=== PATIENT | male | born 1980 | race Caucasian/White ===

== ENCOUNTER 2020-08-03 11:26 | Emergency (ER) | payer OTHER ==
[2020-08-03] MEDS ORDERED: Zofran 4 MG/2 ML VIAL IV ONE (11:43)
[2020-08-03] MEDS ORDERED: BABY ASPIRIN 81 MG CHEW PO ONE (11:43)
[2020-08-03 11:50] LABS: Absolute Neutrophil Ct (ANC) 5.78 (1.4-6.9); BASOPHIL % 0.1 % (0.0-0.4); Basophil (Absolute #) 0.01 (0-0.4); Eosinophil (Absolute #) 0.08 (0-0.5); Hematocrit 50.2 % (42-50); Lymphocyte (Absolute #) 1.42 (1.0-4.6); Lymphocytes % 18.3 % (24.0-44.0); Mean Cell Volume 93.5 fl (78-100); Mean Corpuscular Hemoglobin 31.7 pg (26-32); Mean Corpuscular Hgb Concent. 33.9 g/dl (32-36); Mean Platelet Volume 11.4 fl (7.5-11.0); Monocyte (Absolute #) 0.47 (0.0-1.3); Monocytes % 6.1 % (0.0-12.0); Neutrophil % 74.5 % (36.0-66.0); Platelet Count 241 K/mm3 (150-450); Red Blood Count 5.37 M/mm3 (4.1-5.6); Red Cell Distribution Width 13.1 % (11.5-14.0); White Blood Count 7.8 K/mm3 (4.0-10.5)
[2020-08-03] MEDS ORDERED: Zofran 4 MG/2 ML VIAL ONE (11:59)
[2020-08-03] MEDS ORDERED: BABY ASPIRIN 81 MG CHEW ONE (12:00)
--- NOTE | 2020-08-03 12:14 | ERPHSYRPT ---
- History of Present Illness Historian: patient Exam Limitations: no limitations Patient Subjective Stated Complaint: pt reports chest pain beginning last evening around 2200, states the pain radiates to his back and left shoulder. pt reports strong family cardiac history. pt also reports intermittent nausea. Triage Nursing Assessment: pt is aox3, pt appears in no acute distress, afebrile, pupils perrl, radial pulses strong and equal, cap refill < 3 seconds, pt skin pink warm dry. no edema appreciated. Physician History: 40 yo wm w substernal chest pain x 4 hours. Pt states pain 0 on scale but was up to a 2. He had nausea/diaphoresis wo vomiting/dyspnea. Pt denies HTN/DM/Hyperlipidemia/FH CAD but does smoke <1ppd. Cough/fever are also denied. He has never had this pain before. Timing/Duration: today (4 hours) Activities at Onset: rest Quality: aching, dullness Location: substernal Severity of Pain-Max: mild Severity of Pain-Current: none Modifying Factors: Improves With: nothing Associated Symptoms: diaphoresis, No nausea, No vomiting, No palpitations, No heartburn, No abdominal pain, No shortness of breath, No cough, No hurts to breathe, No chills, No fever, No fatigue, No weakness, No swelling/lump in chest, No syncope, No rash, No headache, No dizziness, No edema, No back pain Prior Chest Pain/Cardiac Workup: no prior chest pain Nitro Today/Relief: no nitro taken today Aspirin Treatment Today: no aspirin today Allergies/Adverse Reactions: sulfamethoxazole [From Bactrim] Allergy (Verified 08/03/20 11:45) Hives trimethoprim [From Bactrim] Allergy (Verified 08/03/20 11:45) Hives Home Medications: Triamterene/Hydrochlorothiazid [Triamterene-Hctz 37.5-25 mg Tb] 1 each PO QAM 08/03/20 [History] Hx Tetanus, Diphtheria Vaccination/Date Given: Yes Hx Influenza Vaccination/Date Given: No Hx Pneumococcal Vaccination/Date Given: No Immunizations Up to Date: Yes Travel Risk - International Travel Have you traveled outside of the country in past 3 weeks: No - Coronavirus Screening Are you exhibiting any of the following symptoms?: No Close contact with a COVID-19 positive Pt in past 14-21 Days: No - Review of Systems Constitutional: No Symptoms Eyes: No Symptoms Ears, Nose, & Throat: No Symptoms Respiratory: No Symptoms Cardiac: Chest Pain, No Edema, No Palpitations, No Syncope, No Orthopnea, No PND Abdominal/Gastrointestinal: No Symptoms Genitourinary Symptoms: No Symptoms Musculoskeletal: No Symptoms Skin: No Symptoms Neurological: No Symptoms Psychological: No Symptoms Endocrine: No Symptoms Hematologic/Lymphatic: No Symptoms Immunological/Allergic: No Symptoms - Past Medical History Pertinent Past Medical History: Yes Neurological History: No Pertinent History ENT History: No Pertinent History Cardiac History: No Pertinent History Respiratory History: No Pertinent History Endocrine Medical History: No Pertinent History Musculoskeletal History: No Pertinent History GI Medical History: No Pertinent History History: No Pertinent History Psycho-Social History: Anxiety Male Reproductive Disorders: No Pertinent History Other Medical History: Meniere's Disease - Past Surgical History Past Surgical History: No Neuro Surgical History: No Pertinent History Cardiac: No Pertinent History Respiratory: No Pertinent History Gastrointestinal: No Pertinent History Musculoskeletal: No Pertinent History Male Surgical History: No Pertinent History - Social History Smoking Status: Current every day smoker Exposure to second hand smoke: No Alcohol Use: Socially Drug Use: marijuana Patient Lives Alone: No Significant Family History: no pertinent family hx - Nursing Vital Signs Nursing Vital Signs: Initial Vital Signs Temperature 97.0 F 08/03/20 11:27 Pulse Rate 80 08/03/20 11:27 Respiratory Rate 14 08/03/20 11:27 Blood Pressure 119/81 08/03/20 11:27 O2 Sat by Pulse Oximetry 99 08/03/20 11:27 Pain Scale Pain Intensity 0 - Physical Exam General Appearance: no apparent distress Eye Exam: PERRL/EOMI, eyes nml inspection Ears, Nose, Throat Exam: normal ENT inspection, TMs normal, pharynx normal, moist mucous membranes Neck Exam: normal inspection, non-tender, supple, full range of motion, No meningismus, No mass, No Brudzinski, No Kernig's Respiratory Exam: normal breath sounds, lungs clear, airway intact, No chest tenderness, No respiratory distress Cardiovascular Exam: regular rate/rhythm, normal heart sounds, normal peripheral pulses, No murmur Gastrointestinal/Abdomen Exam: soft, normal bowel sounds, No tenderness Back Exam: normal inspection, normal range of motion, No CVA tenderness, No vertebral tenderness, No rash Extremity Exam: normal inspection, normal range of motion, pelvis stable Neurologic Exam: alert, oriented x 3, cooperative, tent finisher II-XII nml as tested, normal mood/affect, nml cerebellar function, nml station & gait, sensation nml, disoriented, No motor deficits, No sensory deficit Skin Exam: normal color, warm, dry Lymphatic Exam: No adenopathy SpO2 Interpretation: normal SpO2: 99 O2 Delivery: Room Air - Course Nursing assessment & vital signs reviewed: Yes EKG Interpreted by Me: RATE (NSR/Normal QT-QTc/Peaked T waves/Normal ST segments) - Radiology Exams Chest X-ray Interpretation: Discussed w/ radiologist, Negative Ordered Tests: Active Orders 24 hr Category Date Time Status Head Mechanic STAT Care 08/03/20 11:43 Completed EKG-ER Only STAT Care 08/03/20 11:42 Completed IV Insertion STAT Care 08/03/20 11:43 Completed CHEST 1 VIEW (PORTABLE) Stat Exams 08/03/20 11:41 Completed CBC W DIFF Stat Lab 08/03/20 11:35 Completed CMP Stat Lab 08/03/20 11:35 Completed NT PRO BNP Stat Lab 08/03/20 11:35 Completed TROPONIN Q3H Lab 08/03/20 11:35 Completed Medication Summary Discontinued Medications Generic Name Dose Route Start Last Admin Trade Name Freq PRN Reason Stop Dose Admin Aspirin 324 mg 08/03/20 11:43 08/03/20 12:01 Baby Aspirin 81 Mg Chew PO 08/03/20 11:44 324 mg STAT ONE Administration Aspirin Confirm 08/03/20 12:00 Baby Aspirin 81 Mg Chew Administered 08/03/20 12:01 Dose 324 mg .ROUTE .STK-MED ONE Ondansetron HCl 4 mg 08/03/20 11:43 08/03/20 12:01 Zofran 4 Mg/2 Ml Vial IV 08/03/20 11:44 4 mg STAT ONE Administration Ondansetron HCl Confirm 08/03/20 11:59 Zofran 4 Mg/2 Ml Vial Administered 08/03/20 12:00 Dose 4 mg .ROUTE .STK-MED ONE Lab/Rad Data: Laboratory Result Diagrams 08/03/20 11:35 08/03/20 11:35 Laboratory Results 08/03/20 08/03/20 08/03/20 Range/Units 11:35 11:35 11:35 WBC 7.8 (4.0-10.5) K/mm3 RBC 5.37 (4.1-5.6) M/mm3 Hgb 17.0 (12.5-18.0) gm/dl Hct 50.2 H (42-50) % MCV 93.5 (78-100) fl MCH 31.7 (26-32) pg MCHC 33.9 (32-36) g/dl RDW 13.1 (11.5-14.0) % Plt Count 241 (150-450) K/mm3 MPV 11.4 H (7.5-11.0) fl Gran % 74.5 H (36.0-66.0) % Eos # (Auto) 0.08 (0-0.5) Absolute Lymphs (auto) 1.42 (1.0-4.6) Absolute Monos (auto) 0.47 (0.0-1.3) Lymphocytes % 18.3 L (24.0-44.0) % Monocytes % 6.1 (0.0-12.0) % Eosinophils % 1.0 (0.00-5.0) % Basophils % 0.1 (0.0-0.4) % Absolute Granulocytes 5.78 (1.4-6.9) Basophils # 0.01 (0-0.4) Sodium 138 (137-145) mmol/L Potassium 4.1 (3.5-5.1) mmol/L Chloride 104 (98-107) mmol/L Carbon Dioxide 25 (22-30) mmol/L Anion Gap 13.2 (5-15) MEQ/L BUN 15 (9-20) mg/dL Creatinine 0.82 (0.66-1.25) mg/dL Estimated GFR > 60.0 ML/MIN Glucose 115 H (74-106) mg/dL Calcium 9.8 (8.4-10.2) mg/dL Total Bilirubin 0.60 (0.2-1.3) mg/dL AST 38 (17-59) U/L ALT 30 (0-50) U/L Alkaline Phosphatase 63 (38-126) U/L Troponin I < 0.012 (0.000-0.034) ng/mL NT-Pro-B Natriuret Pep 33.1 (0-450) pg/mL Serum Total Protein 8.3 H (6.3-8.2) g/dL Albumin 5.2 H (3.5-5.0) g/dL - Progress Progress: improved Air Movement: good Progress Note: 08/03/20 13:44 Pt painfree during entire stay. Pt refuses to stay for 2nd troponin. Risks explained to pt including RI/ 08/03/20 13:59 08/03/20 15:12 Pt given ASA 324mg after Hx/exam Counseled pt/family regarding: lab results, diagnosis, need for follow-up, rad results, smoking cessation - Departure Departure Disposition: Home Clinical Impression: Chest pain Condition: Stable Critical Care Time: No Referrals: CLIFTON IZAGUIRRE MD [Primary Care Provider] - Instructions: Chest Pain (DC) Additional Instructions: Follow up with your family MD Return to ER for increasing/sustained pain or shortness of breath
[2020-08-03 12:17] LABS: ALBUMIN 5.2 g/dL (3.5-5.0); ALKALINE PHOSPHATASE 63 U/L (38-126); ANION GAP 13.2 MEQ/L (5-15); BLOOD UREA NITROGEN 15 mg/dL (9-20); CHLORIDE 104 mmol/L (98-107); Calcium 9.8 mg/dL (8.4-10.2); Carbon Dioxide 25 mmol/L (22-30); Creatinine 1 0.82 mg/dL (0.66-1.25); EST GLOMERULAR FILTRATION RATE > 60.0 ML/MIN; Glucose 115 mg/dL (74-106); NT PRO BNP 33.1 pg/mL (0-450); Potassium 4.1 mmol/L (3.5-5.1); SGOT/AST 38 U/L (17-59); SGPT/ALT 30 U/L (0-50); SODIUM 138 mmol/L (137-145); Total Protein 8.3 g/dL (6.3-8.2)
--- NOTE | 2020-08-03 12:27 | XRAY ---
Indication: Chest pain. Comparison: None Portable chest demonstrates normal heart, lungs, and bony thorax.
[2020-08-03 13:42] VITALS: BP 119/79; PULSE 62
[2020-08-03 13:46] VITALS: O2SAT 99
== END 2020-08-03 13:56 | disposition home or self-care (01) ==
LOC: ED 11:26
DX: R07.9 Chest pain, unspecified (principal)
CPT/HCPCS: 36000; 36415; 71045; 80053; 83880; 84484; 85025; 93005; 93041; 96374; 99284; J2405; A9270-GY